=== PATIENT | female | born 1960 | race American Indian/Alaskan Native ===

== ENCOUNTER 2017-08-31 16:01 | Emergency (ER) | payer MEDICAID, OTHER ==
[2017-08-31 16:02] VITALS: BMI 26.6
[2017-08-31] MEDS ORDERED: Sodium Chloride 0.9% 1,000 ML IV STA (16:36)
[2017-08-31] MEDS ORDERED: Iohexol 240 (50 ml) ONE (16:41)
--- NOTE | 2017-08-31 16:44 | ED PDOC ---
Arrival/HPI - General Chief Complaint: GI Problem Time Seen by Provider: 08/31/17 16:21 Historian: Patient - History of Present Illness Narrative History of Present Illness (Text): 08/31/17 16:41 A 57 year old female presents to the emergency department complaining of rectal bleeding. Patient reports she recently had external hemorrhoids removed and internal hemorrhoids removed 6 months ago in March. Patient notes mild lower abdominal pain but denies any fever, chills, nausea, vomiting, diarrhea, chest pain, shortness of breath or any other complaints. Past Medical History - Provider Review Nursing Documentation Reviewed: Yes - Infectious Disease Hx of Infectious Diseases: None - Tetanus Immunization Tetanus Immunization: Unknown - Reproductive Menopause: Yes - Cardiac Hx Cardiac Disorders: Yes Hx Hypertension: Yes - Pulmonary Hx Respiratory Disorders: No - Neurological Hx Neurological Disorder: No - HEENT Hx HEENT Disorder: No - Renal Hx Renal Disorder: No - Endocrine/Metabolic Hx Endocrine Disorders: No - Hematological/Oncological Hx Blood Disorders: No - Integumentary Hx Dermatological Disorder: No - Musculoskeletal/Rheumatological Hx Musculoskeletal Disorders: No - Gastrointestinal Hx Gastrointestinal Disorders: No - Genitourinary/Gynecological Hx Genitourinary Disorders: No - Psychiatric Hx Psychophysiologic Disorder: No Hx Substance Use: No - Past Surgical History Past Surgical History: No Previous - Surgical History Hx Tubal Ligation: Yes Other/Comment: HEMMORHOID REMOVED - Anesthesia Hx Anesthesia: Yes Hx Anesthesia Reactions: No - Suicidal Assessment Feels Threatened In Home Enviroment: No Family/Social History - Physician Review Nursing Documentation Reviewed: Yes Family/Social History: No Known Family HX Smoking Status: Never Smoked Hx Alcohol Use: Yes (SOCIALLY) Hx Substance Use: No Hx Substance Use Treatment: No Allergies/Home Meds Allergies/Adverse Reactions: Allergies No Known Allergies Allergy (Verified 08/31/17 16:03) Home Medications: Home Meds Medication Instructions Recorded Confirmed Docusate [Colace] 1 cap PO DAILY 08/31/17 08/31/17 NIFEdipine ER [Procardia XL] 90 mg PO DAILY 08/31/17 08/31/17 Review of Systems - Physician Review All systems were reviewed & negative as marked: Yes - Review of Systems Constitutional: absent: Fevers, Night Sweats Respiratory: absent: SOB Cardiovascular: absent: Chest Pain Gastrointestinal: Abdominal Pain, Hematochezia. absent: Diarrhea, Nausea, Vomiting Physical Exam Vital Signs Reviewed: Yes Vital Signs Temp Pulse Resp BP Pulse Ox 08/31/17 16:05 98.6 F 82 16 106/72 98 Temperature: Afebrile Blood Pressure: Normal Pulse: Regular Respiratory Rate: Normal Appearance: Positive for: Well-Appearing, Non-Toxic, Comfortable Pain Distress: None Mental Status: Positive for: Alert and Oriented X 3 - Systems Exam Head: Present: Atraumatic, Normocephalic Pupils: Present: PERRL Extroacular Muscles: Present: EOMI Conjunctiva: Present: Normal Mouth: Present: Moist Mucous Membranes Neck: Present: Normal Range of Motion Respiratory/Chest: Present: Clear to Auscultation, Good Air Exchange. No: Respiratory Distress, Accessory Muscle Use Cardiovascular: Present: Regular Rate and Rhythm, Normal S1, S2. No: Murmurs Abdomen: Present: Normal Bowel Sounds. No: Tenderness, Distention, Peritoneal Signs Rectal: Present: Hemorrhoids (External hemorrhoids noted, Non-thrombosed, No active bleeding. No palpable internal hemorrhoids), Normal Rectal Tone. No: Occult Blood (No blood in rectal vault), Rectal Tenderness Upper Extremity: Present: Normal Inspection. No: Cyanosis, Edema Lower Extremity: Present: Normal Inspection. No: Edema Neurological: Present: GCS=15, CN II-XII Intact, Speech Normal Skin: Present: Warm, Dry, Normal Color. No: Rashes Psychiatric: Present: Alert, Oriented x 3, Normal Insight, Normal Concentration Medical Decision Making ED Course and Treatment: 08/31/17 16:41 Impression: A 57 year old female with rectal bleeding. Patient notes lower abdominal pain. Differential Diagnosis included but are not limited to: Rule out Diverticulitis Plan: -- Abdomen and pelvis CT -- Labs -- Urinalysis -- IV fluids -- Reassess and disposition Progress Notes: Report Date : 08/31/2017 20:12:00 EXAM: CT Abdomen and Pelvis With Intravenous Contrast Dictated By: Tyrese Nelson MD, MD IMPRESSION: 1. There is mild wall thickening at the rectosigmoid junction, likely due to incomplete distention or proctocolitis. Additional pathology cannot be excluded. Further clinical evaluation is recommended. 2. There is a small amount of free fluid within the pelvis. 3. Hypodense small bilateral renal cysts are identified. A few tiny nonobstructing renal calculi are seen within the kidneys, without hydronephrosis bilaterally. 4. There is a mild compression fracture of the L5 vertebral body involving the inferior endplate. This is indeterminate in acuity. 5. Additional CT findings described above. - Lab Interpretations Lab Results: 08/31/17 17:05 08/31/17 17:05 Lab Results 08/31/17 17:05: Sodium 142, Potassium 3.9, Chloride 103, Carbon Dioxide 30, Anion Gap 13, BUN 19, Creatinine 0.9, Est GFR ( Amer) > 60, Est GFR (Non- Af Amer) > 60, Random Glucose 92, Calcium 9.9, Total Bilirubin 0.4, AST 20, ALT 22, Alkaline Phosphatase 85, Total Protein 7.9, Albumin 4.5, Globulin 3.5, Albumin/Globulin Ratio 1.3, Lipase 82 08/31/17 17:05: Urine Color Yellow, Urine Appearance Clear, Urine pH 7.0, Ur Specific [place] 1.010, Urine Protein Negative, Urine Glucose (UA) Negative, Urine Ketones Negative, Urine Blood Trace-intact H, Urine Nitrate Negative, Urine Bilirubin Negative, Urine Urobilinogen 1.0 H, Ur Leukocyte Esterase Small H, Urine RBC 1 - 3, Urine WBC 2 - 5, Ur Epithelial Cells 4 - 5, Amorphous Sediment Few, Urine Bacteria Mod 08/31/17 17:05: PT 11.6, INR 1.02 08/31/17 17:05: WBC 5.4, RBC 4.30, Hgb 11.9 L, Hct 35.2 L, MCV 81.9, MCH 27.7, MCHC 33.8, RDW 12.7, Plt Count 297, MPV 10.4, Gran % 43.6 L, Lymph % (Auto) 49.0 H, [place] % (Auto) 6.1 H, Eos % (Auto) 0.7 L, Baso % (Auto) 0.6, Gran # 2.37 , Lymph # (Auto) 2.7, [place] # (Auto) 0.3, Eos # (Auto) 0.0, Baso # (Auto) 0.03 I have reviewed the lab results: Yes - RAD Interpretation Radiology Orders: 08/31/17 16:36 ABD PELVIS PO & IV CONTRAST [CT] Stat - Medication Orders Current Medication Orders: Discontinued Medications Sodium Chloride (Sodium Chloride 0.9%) 1,000 mls @ 999 mls/hr IV .Q1H1M STA Stop: 08/31/17 17:36 Last Admin: 08/31/17 17:17 Dose: 999 mls/hr eMAR Start Stop Document 08/31/17 17:17 [facility] (Rec: 08/31/17 17:18 [facility] [id number]) Intravenous Solution Start Date 08/31/17 Start Time 17:17 End Date 08/31/17 End time 18:17 Total Infusion Time 60 - 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 - Scribe Statement The provider has reviewed the documentation as recorded by the Scribe Sharon Figueroa Provider Scribe Attestation: All medical record entries made by the Scribe were at my direction and personally dictated by me. I have reviewed the chart and agree that the record accurately reflects my personal performance of the history, physical exam, medical decision making, and the department course for this patient. I have also personally directed, reviewed, and agree with the discharge instructions and disposition. Disposition/Present on Arrival - Present on Arrival Any Indicators Present on Arrival: No History of DVT/PE: No History of Uncontrolled Diabetes: No Urinary Catheter: No History of Decub. Ulcer: No History Surgical Site Infection Following: None - Disposition Have Diagnosis and Disposition been Completed?: Yes Diagnosis: Hematochezia Disposition: HOME/ ROUTINE Disposition Time: 20:46 Patient Plan: Discharge Condition: GOOD Discharge Instructions (ExitCare): Bloody Stools, Adult (DC) Additional Instructions: Ayla- All of your test results are negative. There was no blood in your rectum when we did the exam and the CT scan does not show any cause for the bleeding so it is important that you follow up with the doctor who did your hemorrhoid surgery. Call first thing in the morning. Return to us if any problems. [place]- Dr. Hardik Suh Referrals: [facility] Koffi Retripp, [Primary Care Provider] - Follow up with primary Forms: [place] (Portuguese)
[2017-08-31 17:25] LABS: URINE BILIRUBIN NEGATIVE (NEGATIVE); URINE BLOOD TRACE-INTACT (NEGATIVE); URINE GLUCOSE (UA) NEGATIVE (NEGATIVE); URINE LEUKOCYTE ESTERASE SMALL Leu/uL (NEGATIVE); URINE PROTEIN NEGATIVE mg/dL (<30 mg/dL)
[2017-08-31 17:27] LABS: BASO # 0.03 K/mm3 (0.0-2.0); BASO % 0.6 % (0.0-3.0); EOS % 0.7 % (1.5-5.0); GRAN # 2.37 (1.4-6.5); GRAN % 43.6 % (50.0-68.0); HEMOGLOBIN 11.9 g/dL (12.0-16.0); LYMPH # 2.7 (1.2-3.4); MEAN CELL VOLUME 81.9 fl (80.0-105.0); MEAN CORPUSCULAR HEMOGLOBIN 27.7 pg (25.0-35.0); MEAN CORPUSCULAR HGB CONC 33.8 g/dl (31.0-37.0); MEAN PLATELET VOLUME 10.4 fl (7.0-11.0); MONO # 0.3 (0.1-0.6); MONO % 6.1 % (1.0-6.0); RBC 4.3 10^6/uL (3.5-6.1); RED CELL DISTRIBUTION WIDTH 12.7 % (11.5-14.5); WHITE BLOOD COUNT 5.4 10^3/ul (4.5-11.0)
[2017-08-31 17:29] LABS: URINE APPEARANCE CLEAR (CLEAR); URINE COLOR YELLOW (YELLOW)
[2017-08-31 17:30] LABS: INR 1.02 (0.93-1.08); PROTHROMBIN TIME 11.6 SECONDS (9.4-12.5)
[2017-08-31 17:39] LABS: ALB/GLOB RATIO 1.3 (1.1-1.8); ALBUMIN 4.5 g/dL (3.0-4.8); ALT/SGPT 22 U/L (7-56); AST/SGOT 20 U/L (14-36); BLOOD UREA NITROGEN 19 mg/dL (7-21); CALCIUM 9.9 mg/dL (8.4-10.5); GFR AFRICAN-AMERICAN > 60; GFR NON-AFRICAN AMERICAN > 60; LIPASE 82 U/L (23-300); URINE AMORPHOUS SEDIMENT FEW; URINE BACTERIA MOD (NEG)
[2017-08-31] MEDS ORDERED: Iohexol 350 MG/100 ML VIAL ONE (17:58)
--- NOTE | 2017-08-31 20:13 | CT ---
EXAM: CT Abdomen and Pelvis With Intravenous Contrast EXAM DATE/TIME: 08/31/2017 4:36 PM CLINICAL HISTORY: The patient age is 57 years old and is female; Pain and signs and symptoms; Other: Rectal bleeding and mid-low abd pain; Abdominal pain; Localized; Lower; Prior surgery; Surgery date: 6+ months; Surgery type: Tubal ligation, hemorrhoid surgery; Additional info: Lower abdominal pain and bright red blood per rect Facility exam id and description: Ct abdpelc abd pelvis po iv contrast TECHNIQUE: Axial computed tomography images of the abdomen and pelvis with intravenous contrast. All CT scans at this facility use one or more dose reduction techniques, viz.: automated exposure control; ma/kV adjustment per patient size (including targeted exams where dose is matched to indication; i.e. head); or iterative reconstruction technique. Coronal and sagittal reformatted images were created and reviewed. CONTRAST: 95 mL of omnipaque 350 administered intravenously. COMPARISON: No relevant prior studies available. FINDINGS: Lower thorax: Atelectatic changes are visualized at the bilateral lung bases. ABDOMEN: Liver: No mass. Gallbladder and bile ducts: The gallbladder is contracted. Minimal increased density is seen within the dependent gallbladder, and a gallstone cannot be excluded. Pancreas: Normal contour, without acute peripancreatic stranding. Spleen: A splenule is visualized. No splenomegaly. Adrenals: No mass. Kidneys and ureters: Hypodense small bilateral renal cysts are identified. A few tiny nonobstructing renal calculi are seen within the kidneys, without hydronephrosis bilaterally. Stomach and bowel: There is mild wall thickening at the rectosigmoid junction, likely due to incomplete distention or proctocolitis. Additional pathology cannot be excluded. Moderate fecal material is identified within the colon. There is no visualized distention of the small or large bowel. Appendix: The appendix is poorly visualized. PELVIS: Bladder: No mass. Reproductive: Unremarkable as visualized. ABDOMEN and PELVIS: Intraperitoneal space: There is a small amount of free fluid within the pelvis. Bones/joints: There is a mild compression fracture of the L5 vertebral body involving the inferior endplate. This is indeterminate in acuity. There is a subcentimeter nonspecific sclerotic lesion within the left iliac bone. Hypertrophic degenerative changes are noted within the spine. Soft tissues: There is a small fat containing umbilical hernia. There is a tubular area of the peripheral calcification or stent anterior to the left psoas muscle. Vasculature: No abdominal aortic aneurysm. Lymph nodes: No enlarged lymph nodes. IMPRESSION: 1. There is mild wall thickening at the rectosigmoid junction, likely due to incomplete distention or proctocolitis. Additional pathology cannot be excluded. Further clinical evaluation is recommended. 2. There is a small amount of free fluid within the pelvis. 3. Hypodense small bilateral renal cysts are identified. A few tiny nonobstructing renal calculi are seen within the kidneys, without hydronephrosis bilaterally. 4. There is a mild compression fracture of the L5 vertebral body involving the inferior endplate. This is indeterminate in acuity. 5. Additional CT findings described above.
[2017-09-01 11:14] VITALS: BP 113/66; PULSE 72; RESP 16; TEMP 98.6; O2SAT 99
== END 2017-08-31 20:59 | disposition home or self-care (01) ==
LOC: ED 16:01
DX: K92.1 Melena (principal); I10 Essential (primary) hypertension
CPT/HCPCS: 74177; 80053; 81001; 83690; 85025; 85610; 87086; 96360; 99283; J7040; Q9966; Q9967